=== PATIENT | female | born 1980 | race Two or more races ===

== ENCOUNTER 2023-02-17 00:05 | Day surgery (SDC) | payer BC, SELFPAY ==
--- NOTE | 2023-02-06 15:23 | PC.NURSE ---
Report to the Outpatient Waiting Room, entrance under the green pavilion located off [facility], at time _0715_ on date _02/17/23__. Planned Procedure Time: _0915_. Time changes happen often and if your time is changed the preop area will call you the afternoon before. - You and your visitor will be asked to self-screen and do not enter if you have any COVID symptoms. - A mask is optional within the hospital at this time. Patients may have clear liquids (water, carbonated beverages, clear teas, apple juice) until 3 hours prior to surgery with a maximum of 20 ounces. - No food from midnight until time of surgery - Infants may have breast milk until 4 hours before surgery, infant formula 6 hours prior to surgery. - Children will be allowed to drink immediately following surgery. If applicable, please bring a bottle or sippy cup to assist with drinking. Juice, water, soda, and popsicles are readily available. For infants on formula, please bring formula the day of surgery. Pacifiers are allowed. Take the following medications with a SIP of water the morning of surgery: _Pt on no home meds___ DO NOT STOP ANY OF YOUR OTHER PRESCRIPTION MEDICATIONS PRIOR TO SURGERY ?EXCEPT THE FOLLOWING Medications to discontinue per physician Date to take last dose Please no make-up, nail syriac, hairspray, perfume, deodorant, or body powder the day of surgery. No jewelry (including any body piercings) or valuables the day of surgery, leave them at home. Please take a shower or bath the night before, or the morning of, surgery with an antibacterial soap. Wear comfortable, loose fitting clothing. Children are encouraged to wear pajamas. - Jewelry must be removed prior to entering the operating room. Rings and piercings that are not removed may be cut off. - The hospital will not accept responsibility for valuables. - Please leave all valuables, including medications, at home the day of surgery. If you are going home after surgery, a licensed auto transport driver must drive you home. - NO public transportation without another adult if you receive anesthesia. - We recommend that an adult stay with you for 24 hours following discharge. - We also recommend that you do not drive, make important decision, drink alcoholic beverages, or take any drugs that were not prescribed by your health care provider for at least 24 hours after your discharge time. For Pediatric surgeries, we recommend two adults accompany the child home. Follow any additional instructions given to you from your surgeon. If you or anyone in your household have experienced Covid symptoms in the past week, please notify your surgeon or the nurse liaison at the phone number below for possible testing. Telephone instructions given to _Patient__and asked if any additional questions and then verbalized understanding. Patient advised to call surgeon office or pre surgery nurse liaison [phone] if any additional questions.
[2023-02-06 15:31] VITALS: BMI 29.9
[2023-02-17 07:22] VITALS: BP 115/89; PULSE 66; RESP 16; TEMP 36.4; O2SAT 100
--- NOTE | 2023-02-17 07:29 | WPDHPUPDATE1 ---
History and Physical Update Update Date/Time: 02/17/23 07:29 History and Physical has been reviewed, including an updated exam of the patient. There are NO changes in the patient's condition. Risks, benefits, and alternatives have been discussed and questions answered. Patient agrees to proceed with procedure.
--- NOTE | 2023-02-17 07:29 | PM.HPGS ---
History of Present Illness History of Present Illness Consent: Risks, benefits, and alternatives have been discussed and questions answered. Patient agrees to proceed with procedure. Chief complaint: menorrhagia Narrative: Nadia Rolon is a 43 year old female with new onset menorrhagia. Patient has a history of menorrhagia treated with endometrial ablation in 2017 and 2018 in [place]. The patient is new to the area and states her cycles are for 4 days with passing clots and a pad change approximately every 2hours. Was recommended to proceed with D&C hysteroscopy. Risks of infection, bleeding, perforation, and inability to enter the cavity were reviewed. Patient voices understanding and agrees to proceed. Patient was given Cytotec 1000mcg nightly for 7 days prior to the surgery. Review of Systems Review of Systems: not repeated day of surgery; patient states no changes in status [facility] Past Medical History Medical History (Updated 02/17/23 @ 07:36 by Bekah Bell MD) Depression with anxiety Sleep apnea Surgical History Surgical History (Updated 02/17/23 @ 07:35 by Bekah Bell MD) H/O adenoidectomy History of bilateral tubal ligation History of x2 History of endometrial ablation 2018 and possibly 2017 History of surgery on wrist Social History Social History Smoking status: Never smoker Alcohol intake: current Alcohol use details: Maybe a drink a month Substance use: never Substance use type: does not use Living arrangements: with family Spiritual care concerns: No Meds Home Medications and Allergies Allergies Allergy/AdvReac Type Severity Reaction Status Date / Time hydrocodone Allergy Mild Nausea Verified 02/17/23 07:36 Penicillins Allergy Mild Nausea Verified 02/17/23 07:36 Exam Const: General: healthy appearing and alert Orientation/consciousness: patient oriented x3 Resp: Effort & Inspection: normal respiratory effort GI: GI Palp: Yes Soft to palpation and No Tenderness to palpation present (GI) : External Female Exam: normal external appearance Speculum Exam - Vagina: normal appearance of the vagina and normal vaginal discharge Speculum Exam - Cervix: normal appearance of the cervix Bimanual exam- vagina & uterus: consistency normal and enlarged ( approximately 16 weeks) Bimanual Exam- Adnexa, other: normal adnexae and No adnexal tenderness Neuro: General: patient oriented x3 Assessment and Plan Assessment and plan (1) Menorrhagia: Code(s): N92.0 - Excessive and frequent menstruation with regular cycle Status: Acute Assessment and Plan: plan to proceed with D&C hysteroscopy
[2023-02-17] MEDS: ACETAMINOPHEN 500 MG TABLET 1000 MG PO (07:43)
[2023-02-17] MEDS: LACTATED RINGERS 1,000 ML 30 ML IV CONT (08:18)
--- NOTE | 2023-02-17 08:36 | P.PNAN_ITS ---
Anes - Initial Pre Proc Eval Procedure: Operation Date: 02/17/23 09:15 Proposed Procedures p Hysteroscopy Dilation and Curettage - Bekah Bell MD Date/Time: 02/17/23 08:36 Surgeon: Bekah Bell MD Pre Op Diagnosis: menorrhagia Patient Data Age: 43 Gender: F Height: 1.65 m Weight: 86.1 kg Last Vital Signs Temp 36.4 C 02/17/23 07:22 Pulse 66 02/17/23 07:22 Resp 16 02/17/23 07:22 BP 115/89 02/17/23 07:22 Pulse Ox 100 02/17/23 07:22 O2 Del Method Room Air 02/17/23 07:22 Allergies Allergy/AdvReac Type Severity Reaction Status Date / Time hydrocodone Allergy Mild Nausea Verified 02/17/23 07:36 Penicillins Allergy Mild Nausea Verified 02/17/23 07:36 Home Medications Medication Instructions Recorded Confirmed Type No Home Medications 02/17/23 02/17/23 History Patient hx anesthesia problems: none Family hx anesthesia problems: none Results Review: All pre-operative results and documents have been reviewed as part of the pre- operative evaluation. [facility] Past Medical History Medical History Depression with anxiety Sleep apnea Surgical History Surgical History H/O adenoidectomy History of bilateral tubal ligation History of x2 History of endometrial ablation 2018 and possibly 2017 History of surgery on wrist Social History Social History Smoking status: Never smoker Alcohol intake: current Alcohol use details: Maybe a drink a month Substance use: never Substance use type: does not use Living arrangements: with family Spiritual care concerns: No Anes - Eval Final PreProcedure Day of Procedure 02/17/23 08:36 Patient weight: obese Heart: regular rate and rhythm Lungs: clear to auscultation Airway: Mallampati scale class II Neurological: alert and oriented Last oral intake: >/= 8 hours ASA classification: III Emergent: no Anesthetic plan: proceed Anesthesia type and monitoring: general GIVS and standard monitoring Results Review: All pre-operative results and documents have been reviewed as part of the pre- operative evaluation. Informed Consent: The patient's anesthetic plan and its attendant risks and benefits were discussed with the patient/family/POA. Questions were solicited and answers provided to the satisfaction of the patient/family/POA.
[2023-02-17] MEDS: LIDOCAINE HCL 1% LOCAL INJ 10 ML VIAL INFILTRATE (09:35)
--- NOTE | 2023-02-17 09:53 | P.OP_ITS ---
Procedure Note - Detailed Date of Procedure 02/17/23 Pre-op Diagnosis menorrhagia Post-op Diagnosis Same Procedure Performed D&C hysteroscopy with resection of polyps Surgeon Bekah Bell MD Anesthesia MAC and Local Findings uterus sounds to 9cm; 2 large polyps noted; thickened endometrium anteriorly Description of Procedure The patient was taken to the operating room and placed under anesthesia in the dorsal lithotomy position. She was prepped and draped in the usual sterile fashion. [place] speculum was placed in the vagina and the cervix grasped on the anterior lip with a tenaculum. The cervix is injected in each quadrant with 1% lidocaine. The uterus is sounded to 9cm. Hysteroscope was placed with the above-stated findings. The Aveeta resection device is placed through the hysteroscope and under direct visualization the polyps and thickened lining are removed. The hysteroscope was then removed. A sharp curette is used to curette the endometrium until a good uterine cry was noted in all areas. All instruments were then removed. The patient was awakened from anesthesia and taken to recovery in stable condition. Sponge, needle, and instrument counts are correct per the OR staff. Estimated Blood Loss 5 Drains No Packing No Pathology Yes ( Endometrial curettings and shavings) Complications No immediate complications Condition Stable Disposition PACU
[2023-02-17 09:58] VITALS: BP 98/65; PULSE 68; RESP 16; O2SAT 99
[2023-02-17 10:13] VITALS: BP 115/75; PULSE 63; RESP 15
[2023-02-17 10:28] VITALS: BP 117/70; PULSE 55; RESP 16
[2023-02-17 10:43] VITALS: BP 118/72; PULSE 62; RESP 15
== END 2023-02-17 10:47 | disposition home or self-care (01) ==
PROVIDERS: PCP Family Medicine; Visit Provider Obstetrics & Gynecology Gynecology
PROC: 0U5B8ZZ Destruction of Endometrium, Via Natural or Artificial Opening Endoscopic (ICD-10-PCS; CPT 58563; principal; 2023-02-17 09:15)
DX: N92.0 Excessive and frequent menstruation with regular cycle (principal); N84.0 Polyp of corpus uteri
CPT/HCPCS: 58558; 88305; A9270; J2250; J2704; J3010; J7120

== ENCOUNTER 2023-06-17 12:24 | Outpatient (CLI) | payer BC, SELFPAY ==
[2023-06-17 12:47] LABS: Hematocrit 41.4 % (37.0-47.0); Hemoglobin 13.5 g/dL (12.0-15.0)
== END 2023-06-17 12:25 | disposition home or self-care (01) ==
LOC: ANHSURGERY 12:29
PROVIDERS: PCP Family Medicine; Visit Provider Obstetrics & Gynecology Gynecology
DX: Z01.812 Encounter for preprocedural laboratory examination (principal); N92.0 Excessive and frequent menstruation with regular cycle
CPT/HCPCS: 36415; 85014; 85018; 86850; 86900; 86901

== ENCOUNTER 2023-06-23 12:28 | Inpatient (IN) | payer BC, SELFPAY ==
[2023-06-13 12:41] VITALS: BMI 29.9
--- NOTE | 2023-06-13 12:46 | PC.NURSE ---
Report to the Outpatient Waiting Room, entrance under the green pavilion located off [facility], at time 6:15 on date 06/23/23. Planned Procedure Time: 8:15. Time changes happen often and if your time is changed the preop area will call you the afternoon before. - You and your visitor will be asked to self-screen and do not enter if you have any COVID symptoms. - A mask is optional within the hospital at this time. Patients may have clear liquids (water, carbonated beverages, clear teas, apple juice) until 3 hours prior to surgery (5:15) with a maximum of 20 ounces. - No food from midnight until time of surgery Take the following medications with a SIP of water the morning of surgery: N/A DO NOT STOP ANY OF YOUR OTHER PRESCRIPTION MEDICATIONS PRIOR TO SURGERY ?EXCEPT THE FOLLOWING Medications to discontinue per physician: N/A Date to take last dose: N/A Please no make-up, nail icelandic, hairspray, perfume, deodorant, or body powder the day of surgery. No jewelry (including any body piercings) or valuables the day of surgery, leave them at home. Please take a shower or bath the night before, or the morning of, surgery with an antibacterial soap. Wear comfortable, loose fitting clothing. - Jewelry must be removed prior to entering the operating room. Rings and piercings that are not removed may be cut off. - The hospital will not accept responsibility for valuables. - Please leave all valuables, including medications, at home the day of surgery. If you are going home after surgery, a licensed national flatbed truck driver must drive you home. - NO public transportation without another adult if you receive anesthesia. - We recommend that an adult stay with you for 24 hours following discharge. - We also recommend that you do not drive, make important decision, drink alcoholic beverages, or take any drugs that were not prescribed by your health care provider for at least 24 hours after your discharge time. Follow any additional instructions given to you from your surgeon. If you or anyone in your household have experienced Covid symptoms in the past week, please notify your surgeon or the nurse liaison at the phone number below for possible testing. Telephone instructions given to PT - JANES VILLANUEVA and asked if any additional questions and then verbalized understanding. Patient advised to call surgeon office or pre surgery nurse liaison [phone] if any additional questions.
[2023-06-23] VITALS (20 sets, daily range): BP systolic 112–137; BP diastolic 56–83; PULSE 54–70; RESP 12–18; TEMP 36.2–36.9; O2SAT 92–100
[2023-06-23] MEDS: ACETAMINOPHEN 500 MG TABLET 1000 MG PO (06:59)
--- NOTE | 2023-06-23 07:15 | P.PNAN_ITS ---
Anes - Initial Pre Proc Eval Procedure: Operation Date: 06/23/23 08:15 Proposed Procedures p Total Abdominal Hysterectomy with Bilateral Salpingectomy - Bekah Bell MD Date/Time: 06/23/23 07:15 Surgeon: Bekah Bell MD Pre Op Diagnosis: Menorrhagia Patient Data Age: 43 Gender: F Height: 1.65 m Weight: 86.1 kg Last Vital Signs Temp 36.2 C L 06/23/23 06:12 Pulse 65 06/23/23 06:12 Resp 16 06/23/23 06:12 BP 130/82 06/23/23 06:12 Pulse Ox 100 06/23/23 06:12 O2 Del Method Room Air 06/23/23 06:12 Allergies Allergy/AdvReac Type Severity Reaction Status Date / Time hydrocodone Allergy Mild Nausea Verified 06/23/23 06:45 Penicillins Allergy Mild Nausea Verified 06/23/23 06:45 Home Medications Medication Instructions Recorded Confirmed Type No Home Medications 02/17/23 06/23/23 History Patient hx anesthesia problems: none Family hx anesthesia problems: none Results Review: All pre-operative results and documents have been reviewed as part of the pre- operative evaluation. [facility] Past Medical History Medical History Depression with anxiety Sleep apnea Surgical History Surgical History H/O adenoidectomy History of bilateral tubal ligation History of x2 History of endometrial ablation 2018 and possibly 2017 History of surgery on wrist Social History Social History Smoking status: Never smoker Alcohol intake: never Alcohol use details: Maybe a drink a month Substance use: current Substance use type: marijuana Living arrangements: with family Spiritual care concerns: No Anes - Eval Final PreProcedure Day of Procedure 06/23/23 07:15 Patient weight: obese Heart: regular rate and rhythm Lungs: clear to auscultation Airway: Mallampati scale class II Neurological: alert and oriented Last oral intake: >/= 8 hours ASA classification: III Emergent: no Anesthetic plan: proceed Anesthesia type and monitoring: general ETT and standard monitoring Results Review: All pre-operative results and documents have been reviewed as part of the pre- operative evaluation. Informed Consent: The patient's anesthetic plan and its attendant risks and benefits were discussed with the patient/family/POA. Questions were solicited and answers provided to the satisfaction of the patient/family/POA.
--- NOTE | 2023-06-23 07:22 | WPDHPUPDATE1 ---
History and Physical Update Update Date/Time: 06/23/23 07:22 History and Physical has been reviewed, including an updated exam of the patient. There are NO changes in the patient's condition. Risks, benefits, and alternatives have been discussed and questions answered. Patient agrees to proceed with procedure.
--- NOTE | 2023-06-23 07:22 | PM.IMHP ---
H&P: HPI History of Present Illness Date/Time: 06/23/23 07:22 Chief Complaint: Menorrhagia Narrative: The patient is a 43-year-old with longstanding menorrhagia. She presented as a new patient to me in December of 2022 and is status post 2 ablations 1 in 2017 and 1 in 2018. She reports continued heavy cycles with clotting. She underwent hysteroscopy with findings of 2 large polyps. Cycles were observed and did not improved. She has elected to proceed with hysterectomy. Risks of infection, bleeding, injury to internal organs (especially bowel, bladder, ureters, ovaries), DVT and general anesthesia are reviewed. Uterus palpates as 16 week size however ultrasound shows it to be 10cm. No appreciable fibroids are noted on ultrasound. Patient has had 2 prior sections therefore we plan to proceed with total abdominal hysterectomy bilateral salpingectomy. Patient voices understanding and agrees to proceed. Review of Systems Review of Systems: not repeated day of surgery; patient states no changes in status [facility] Past Medical History Medical History Depression with anxiety Sleep apnea Surgical History Surgical History (Updated 06/23/23 @ 07:26 by Bekah Bell MD) H/O adenoidectomy History of bilateral tubal ligation History of x2 History of endometrial ablation 2017 and possibly 2017 History of hysteroscopy 2022 showing polyps History of surgery on wrist Social History Social History Smoking status: Never smoker Alcohol intake: never Alcohol use details: Maybe a drink a month Substance use: current Substance use type: marijuana Living arrangements: with family Spiritual care concerns: No Meds Home Medications and Allergies Home Medications Medication Instructions Recorded Confirmed Type No Home Medications 02/17/23 06/23/23 History Allergies Allergy/AdvReac Type Severity Reaction Status Date / Time hydrocodone Allergy Mild Nausea Verified 06/23/23 06:45 Penicillins Allergy Mild Nausea Verified 06/23/23 06:45 Vital Signs Vital Signs - 24 hr 06/23/23 06:12 Temperature 97.2 F L Pulse Rate 65 Respiratory Rate 16 Blood Pressure 130/82 Pulse Oximetry 100 Oxygen Delivery Room Air Exam Const: General: healthy appearing and alert Orientation/consciousness: patient oriented x3 Resp: Effort & Inspection: normal respiratory effort GI: GI Palp: Yes Soft to palpation, No Tenderness to palpation present (GI) and No Palpable mass present : External Female Exam: normal external appearance Speculum Exam - Vagina: normal appearance of the vagina and normal vaginal discharge Speculum Exam - Cervix: normal appearance of the cervix Bimanual exam- vagina & uterus: consistency normal and enlarged (And firm) Bimanual Exam- Adnexa, other: normal adnexae and No adnexal tenderness Neuro: General: patient oriented x3 Assessment and Plan Assessment and plan (1) Menorrhagia: Code(s): N92.0 - Excessive and frequent menstruation with regular cycle Status: Acute Assessment and Plan: Plan to proceed with total abdominal hysterectomy and bilateral salpingectomy
[2023-06-23] MEDS: LACTATED RINGERS 1,000 ML 30 ML IV CONT ×3 (07:48→11:31)
[2023-06-23] MEDS: KETOROLAC 15 MG/ML VIAL (*BKC) IV PUSH (07:51)
[2023-06-23] MEDS: ceFAZolin 2 GM/D5W 50 ML 2 GM/50 ML BAG IVPB (08:36)
[2023-06-23] MEDS: METHYLENE BLUE 0.5% INJ 10 ML AMPULE 20 ML IRRIGATION (10:07)
--- NOTE | 2023-06-23 10:38 | W.PM.PROC2 ---
Procedure Note - Detailed Date of Procedure 06/23/23 Pre-op Diagnosis Intraoperative bladder injury Post-op Diagnosis Same Procedure Performed Repair of bladder laceration/cystorrhaphy Surgeon Janak Gore MD Anesthesia General Indications I was asked to come into the room to evaluate a bladder injury to hysterectomy. A animal nutritionist noted significant adhesions of the bladder and uterus to the anterior pelvic wall. Findings Small bladder laceration. Mostly repaired by the animal nutritionist. Completion of repair by myself in conjunction with a animal nutritionist Description of Procedure I into the room upon the request of her animal nutritionist. She was already under general anesthesia in the abdomen was open. I examined the bladder. The space of Retzius was already opened to free the bladder off the pubic bones. A partial repair of bladder injury was already conducted. A White catheter is in place. The bladder was filled to 150 cc saline. An area of leakage was noted at the left dome of the bladder. It was isolated. There was mostly mucosa in this area with very little overlying detrusor muscle and adventitia. I was able to repair this bladder laceration with 2 separate [id number] 2-0Vicryl sutures. The bladder was then filled to 180 cc of saline. No further leakage was noted from the bladder. At this point the bladder was very full. The rest of the repair was intact as well. She was then turned over to her animal nutritionist for the remainder of the surgery. White catheter be left indwelling. She will need to be discharged home with White catheter with a cystogram in 10 days Estimated Blood Loss 5 Condition Stable
--- NOTE | 2023-06-23 10:55 | W.PM.PROC2 ---
Procedure Note - Detailed Date of Procedure 06/23/23 Pre-op Diagnosis Menorrhagia Post-op Diagnosis Same Procedure Performed Total abdominal hysterectomy with bilateral salpingectomy repair of cystotomy Surgeon Bekah Bell MD intraoperative consult with Dr. Gore Anesthesia General Findings The uterus and bladder are adherent to the anterior abdominal wall in approximately a 5x3cm sq. She has normal-appearing ovaries, uterus, and tubes with evidence of prior ligation. 3 cm injury to the bladder at the dome in midline. Description of Procedure The patient is taken to the operating room and placed under anesthesia in the dorsal supine position. She was prepped and draped in the usual sterile fashion. A Pfannenstiel skin incision was made with a scalpel and carried down to the underlying layer of fascia. The fascia was very dense and scarred. The fascia was nicked in the midline and extended laterally with Marina scissors. Ochsner was used to tent the fascia which was then dissected off using sharp dissection due to adhesions. The rectus muscles are in the midline and the peritoneum entered with a Peon high in the incision. The incision was extended minimally with blunt traction due to underlying adhesions. Palpating the undersurface the abdominal wall leads to a very densely adherent sq of tissue from the uterus and bladder to the anterior abdominal wall. The bowel was packed away using moist laparotomy sponges and Siletz retractor placed. The uterus was grasped on the cornua with large Peons. At this point the nurse music composition teacher is instructed to closely observe the White catheter for blood. The uterus and abdomen are dissected off the anterior abdominal wall using sharp dissection with Metzenbaum scissors. A pink tinge was noted to the urine at this point. Once the uterus was dissected off the anterior abdominal wall the bladder was noted to be very adherent to the mid uterus. This is dissected off using sharp dissection with Metzenbaum scissors. The urine continued to have increasing levels of red consistent with a bladder injury. The left utero-ovarian ligament is isolated and a window created in the posterior leaf of the broad ligament. The tube distal portion was grasped with a Denver and the pedicle doubly clamped with minimally curved Z clamps. Pedicle was then transected and suture ligated with 0 Vicryl. The round ligament on the left is completely obliterated and scarred to the pelvic sidewall. This is dissected off using sharp and blunt dissection. Round ligament is then doubly ligated with 0 Vicryl, transected, and the anterior leaf of the broad ligament incised meeting approximately the midline. The right round ligament was doubly ligated with 0 Vicryl, transected, and the anterior leaf of the broad ligament incised meeting in the midline. The bladder was dissected off the cervix with a sponge stick. The utero ovarian ligament on the right is isolated and a window created in the posterior leaf of the broad ligament. The distal tube is grasped with a Krysten and noted to be very distal from the utero-ovarian ligament. The tube was clamped at its connection with the ovary on a very scarred mesiosalpinx with Z clamp. The tube was excised and the pedicle tied off using 0 Vicryl. The utero-ovarian ligament was doubly clamped, transected, and suture ligated with 0 Vicryl. The uterine vessels are doubly clamped, transected, suture ligated with 0 Vicryl. The cardinal and uterosacral ligaments were serially clamped, transected, and suture ligated with 0 Vicryl. The uterosacral ligaments were tagged for future use. A scalpel was used to enter the anterior vaginal cuff in the midline. The Allis clamp was used to grasp the vaginal cuff. The specimen is amputated using Miracle scissors. The Allis clamps were used to grasp the vaginal cuff as the specimen was amputated. The vaginal cuff was then closed usi
--- NOTE | 2023-06-23 11:13 | PM.DS ---
DS: Admitting Diagnosis Discharge Date 06/25/23 Admitting Diagnosis menorrhagia DS: Discharge Diagnosis Discharge Diagnosis (1) Status post total abdominal hysterectomy: Code(s): Z90.710 - Acquired absence of both cervix and uterus Status: Acute DS: Summary Hospital Course Reason for hospitalization: postoperative care Hospital Course: At the time of discharge, the patient is tolerating regular diet and ambulating. She has her White catheter in place and will be discharged with the catheter. Status at Discharge Functional status at discharge: independent ambulation Overall status at discharge: patient is progressing back to baseline Time Spent with Patient Time attestation: Total time spent providing and/or coordinating discharge services: DS: Data Data Completed and Pending Pending studies at discharge: Pending at discharge 06/23/23 10:45 Surgical [PTH] Routine Discharge Plan Discharge Attending physician on discharge: Bekah Bell Discharging Clinician: Bekah Bell Anticipated Discharge Date/Time: 06/25/23 07:53 Patient Disposition: Home, Self-Care Activity: may drive after 2 weeks and pelvic rest Diet: regular Wound Care Instructions: incision open to air Stand Alone Forms: General Discharge Instructions Follow-up/Referrals: Bekah Bell MD [Physician] - 1 Week (and 6 week) Discharge Medications: New ibuprofen 600 mg Tablet 600 mg PO Q6H PRN (Reason: Cramping) Qty: 60 0RF No Action No Home Medications Date of admission: 06/23/23 12:28 Primary Care Provider: Chris,Hemalatha Admitting Provider: Bekah Bell Attending physician on admission: Bekah Bell Condition: Stable Care Plan Goals: cytogram 07/04
[2023-06-23] MEDS: fentaNYL CITRATE INJ (*CRX) 100 MCG/2 ML VIAL 25 MCG IV PUSH ×2 (11:53→12:08)
[2023-06-23] MEDS: KETOROLAC 30 MG/ML VIAL (*BKC) IV PUSH (13:30)
[2023-06-23] MEDS: DEXTROSE 5%/LACTATED RINGERS 1,000 ML 125 ML IV CONT ×2 (13:37→21:19)
[2023-06-23] MEDS: ONDANSETRON INJ 4 MG/2 ML VIAL IV PUSH ×2 (13:38→19:05)
[2023-06-23] MEDS: FENTANYL 600MCG/NS30MLPCA(*CRX 600 MCG/30 ML PCA.VIAL IV CONT (15:21)
[2023-06-23] MEDS: diphenhydrAMINE HCl INJ 50 MG/ML VIAL 25 MG IV PUSH (19:05)
[2023-06-24] VITALS (7 sets, daily range): BP systolic 108–130; BP diastolic 65–74; PULSE 69–84; RESP 16–18; TEMP 36.7–37.3; O2SAT 98–99
[2023-06-24] MEDS: ONDANSETRON INJ 4 MG/2 ML VIAL IV PUSH (04:11)
[2023-06-24 04:39] LABS: Basophils Percent Auto 0.2 % (0.2-1.2); Hematocrit 30.6 % (37.0-47.0); Hemoglobin 9.7 g/dL (12.0-15.0); Immature Granulocyte Absolute 0.05 K/mm3 (0.00-0.031); Immature Granulocyte Percent A 0.4 % (0-0.5); Lymphocytes Absolute Auto 1.55 K/mm3 (0.9-3.2); Lymphocytes Percent Auto 13.2 % (18.3-44.2); Mean Corpuscular HGB Conc 31.7 g/dl (32-36); Mean Corpuscular Hemoglobin 29.2 pg (26-34); Mean Corpuscular Volume 92.2 fl (80-100); Mean Platelet Volume 9.9 fl (7.4-10.4); Monocytes Absolute Auto 0.9 K/mm3 (0.1-0.6); Monocytes Percent Auto 7.6 % (2.6-8.5); Neutrophils Absolute Auto 9.3 K/mm3 (1.3-6.7); Neutrophils Percent Auto 78.6 % (45.5-73.1); Platelet Count Result 268 k/mm3 (150-375); Red Blood Count 3.32 M/mm3 (4.2-5.4); Red Cell Distribution Width 12.8 % (11.5-14.5); White Blood Count 11.8 K/mm3 (4.5-10.0)
[2023-06-24] MEDS: DEXTROSE 5%/LACTATED RINGERS 1,000 ML 125 ML IV CONT (05:14)
--- NOTE | 2023-06-24 07:55 | PM.GYNPNOP ---
BEADING SAWYER - A/P Postoperative Procedures: Procedures Operation Date: 06/23/23 08:15 Actual Procedure Side Surgeon p Total Abdominal Hysterectomy with Bilateral Salpingectomy Bilateral Bekah Bell MD s Repair of Bladder Laceration Not Applicable Janak Gore MD Postoperative day: 1 Postoperative status: doing well and other (reviewed op findings and bladder injury and repair) Postoperative plan: routine post-op care (except leaving haskins in for 10 days) Time Spent With Patient Time: Total time spent is greater than 50% in coordination of care (as documented) at patient's floor/unit and/or counseling patient: Time with patient: less than 15 minutes BEADING SAWYER- PN:Subj Post-Op Subjective Date/time seen: 06/24/23 07:55 Subjective: patient reports feeling better, patient has no complaints and pain is well controlled Exam Narrative: inc c/d/i Const: General: comfortable BEADING SAWYER - PN: Obj Data Vital Signs Vital Signs: Vital Signs - 24 hr 06/23/23 10:59 06/23/23 11:15 06/23/23 11:30 Temperature 98.2 F Pulse Rate 70 56 L 55 L Respiratory Rate 12 16 12 Blood Pressure 126/56 L 112/70 124/72 Pulse Oximetry 100 100 98 Oxygen Delivery Simple Face Mask Simple Face Mask Room Air Oxygen Flow Rate 10 10 06/23/23 11:45 06/23/23 12:00 06/23/23 12:15 Temperature Pulse Rate 54 L 54 L 54 L Respiratory Rate 12 16 16 Blood Pressure 113/70 125/65 121/71 Pulse Oximetry 97 98 92 Oxygen Delivery Room Air Room Air Room Air Oxygen Flow Rate 06/23/23 12:27 06/23/23 12:50 06/23/23 15:21 Temperature 97.4 F L Pulse Rate 59 L 56 L Respiratory Rate 18 16 16 Blood Pressure 120/70 112/64 Pulse Oximetry 99 100 97 Oxygen Delivery Room Air Oxygen Flow Rate 06/23/23 17:36 06/23/23 12:45 06/23/23 17:51 Temperature 97.5 F L Pulse Rate 68 68 68 Respiratory Rate 16 16 16 Blood Pressure 129/79 Pulse Oximetry 98 98 98 Oxygen Delivery Room Air Room Air Oxygen Flow Rate 06/23/23 16:20 06/23/23 17:20 06/23/23 18:20 Temperature Pulse Rate Respiratory Rate 16 14 16 Blood Pressure Pulse Oximetry 97 95 99 Oxygen Delivery Oxygen Flow Rate 06/23/23 18:45 06/23/23 18:45 06/23/23 23:24 Temperature 98.4 F Pulse Rate 67 Respiratory Rate 18 Blood Pressure 137/83 Pulse Oximetry 98 98 Oxygen Delivery Room Air CPAP Oxygen Flow Rate 06/24/23 00:00 06/24/23 00:00 06/24/23 04:13 Temperature 98.3 F 98.1 F Pulse Rate 69 84 Respiratory Rate 18 16 Blood Pressure 127/73 126/74 Pulse Oximetry 98 98 Oxygen Delivery CPAP Oxygen Flow Rate 06/24/23 04:13 06/23/23 20:15 06/23/23 22:30 Temperature Pulse Rate Respiratory Rate 18 14 Blood Pressure Pulse Oximetry 98 100 Oxygen Delivery CPAP Oxygen Flow Rate 06/24/23 00:42 06/24/23 02:50 06/24/23 05:16 Temperature Pulse Rate Respiratory Rate 18 16 16 Blood Pressure Pulse Oximetry 98 98 98 Oxygen Delivery Oxygen Flow Rate Intake/Output Intake/Output: Intake & Output 06/21/23 06/22/23 06/23/23 06/24/23 23:59 23:59 23:59 23:59 Intake Total 2403 1207.5 Output Total 830 1175 Balance 1573 32.5 Meds/Results Medications: Active Medications Generic Name Dose Route Start Last Admin Trade Name Freq PRN Reason Stop Dose Admin Diphenhydramine HCl 25 mg 06/23/23 18:53 06/23/23 19:05 Diphenhydramine Hcl Inj 50 Mg/Ml Vial IV PUSH 25 mg Q4H PRN Administration Vomiting Dextrose/Lactated Ringer's 1,000 mls @ 125 mls/hr 06/23/23 12:28 06/24/23 05:14 Dextrose 5%/Lactated Ringers IV CONT 125 mls/hr .Q8H KARTHIK Administration Fentanyl Citrate 600 mcg in 30 mls @ 0.5 mls/hr 06/23/23 12:28 06/24/23 05:16 Fentanyl 600 Mcg/Ns 30 Ml Technology Adoption Manager IV CONT 10 mcg/hr PRN PRN 0.5 mls/hr COLLET GLUER Management Titration Protocol 10 MCG/HR Ibuprofen 600 mg 06/23/23 12:28 Ibuprofen 600 Mg Tablet PO Q6H PRN Cramping Keto
--- NOTE | 2023-06-24 08:00 | PC.NURSE ---
PT introductions made and plan of care discussed per post op industrial nurse surgery, pain management, daily care activities. PT sole recipient of such instructions and no barriers to learning identified at this time. PT received such instructions per one to one discussion and demonstrations this shift. PT verbalized understanding of such care.
[2023-06-24] MEDS: KETOROLAC 30 MG/ML VIAL (*BKC) IV PUSH (08:29)
--- NOTE | 2023-06-24 08:45 | P.PNAN_ITS ---
Anes - Prog Note Post-Op Date/Time: 06/24/23 08:45 Cardiovascular status: normal Respiratory status: normal Airway patency: baseline Mental status: baseline Post-Op hydration status: normal Vital Signs: Last Vital Signs Temp 36.7 C 06/24/23 04:13 Pulse 84 06/24/23 04:13 Resp 16 06/24/23 05:16 BP 126/74 06/24/23 04:13 Pulse Ox 98 06/24/23 05:16 O2 Del Method CPAP 06/24/23 04:13 O2 Flow Rate 10 06/23/23 11:15 Pain Score (VAS): 11/08 I/O: Intake & Output 06/23/23 06/24/23 06/24/23 23:59 07:59 15:59 Intake Total 1003 1207.5 7.5 Output Total 800 1175 Balance 203 32.5 7.5 Laboratory Tests 06/24/23 04:06 06/24/23 04:06 WBC 11.8 H RBC 3.32 L Hgb 9.7 L D Hct 30.6 L MCV 92.2 MCH 29.2 MCHC 31.7 L RDW 12.8 Plt Count 268 MPV 9.9 Immature Gran % (Auto) 0.4 Neut % (Auto) 78.6 H Lymph % (Auto) 13.2 L [place] % (Auto) 7.6 Eos % (Auto) 0.0 Baso % (Auto) 0.2 Lymph # (Auto) 1.55 [place] # (Auto) 0.9 H Eos # (Auto) 0.0 Baso # (Auto) 0.0 Abs Immat Gran (auto) 0.05 H Absolute Neuts (auto) 9.3 H Absolute Nucleated RBC 0.0 Nucleated RBC % 0.0 Post-procedural complaints: none Patient Feedback: Patient satisfied with anesthetic care.
[2023-06-24] MEDS: oxyCODONE/ACETAMINOPHEN (*CRX) 5-325 MG TABLET 1 TABLET PO (12:35)
[2023-06-24] MEDS: IBUPROFEN 600 MG TABLET PO (17:21)
[2023-06-25] MEDS: IBUPROFEN 600 MG TABLET PO (05:25)
[2023-06-25 07:17] VITALS: BP 129/81; PULSE 71; RESP 16; TEMP 36.8; O2SAT 99
--- NOTE | 2023-06-25 07:23 | P.PNOB_ITS ---
AUTOMATION ENGINEERING TECHNICIAN - A/P Postoperative Procedures: Procedures Operation Date: 06/23/23 08:15 Actual Procedure Side Surgeon p Total Abdominal Hysterectomy with Bilateral Salpingectomy Bilateral Bekah Bell MD s Repair of Bladder Laceration Not Applicable Janak Gore MD Postoperative day: 2 Postoperative status: doing well Postoperative plan: discharge and other (cystogram set for 07/04) Time Spent With Patient Time: Total time spent is greater than 50% in coordination of care (as documented) at patient's floor/unit and/or counseling patient: Time with patient: less than 15 minutes AUTOMATION ENGINEERING TECHNICIAN- PN:Subj Post-Op Subjective Date/time seen: 06/25/23 07:23 Subjective: patient reports feeling better, patient has no complaints and pain is well controlled (with just Motrin) Exam Narrative: inc c/d/i AUTOMATION ENGINEERING TECHNICIAN - PN: Obj Data Vital Signs Vital Signs: Vital Signs - 24 hr 06/24/23 08:30 06/24/23 19:15 06/25/23 07:17 Temperature 98.4 F 99.1 F Pulse Rate 75 77 Respiratory Rate 16 18 Blood Pressure 130/65 108/72 Pulse Oximetry 99 99 Oxygen Delivery CPAP Intake/Output Intake/Output: Intake & Output 06/22/23 06/23/23 06/24/23 06/25/23 23:59 23:59 23:59 23:59 Intake Total 2403 3115.0 400 Output Total 830 3500 650 Balance 1573 -385.0 -250 Meds/Results Medications: Active Medications Generic Name Dose Route Start Last Admin Trade Name Freq PRN Reason Stop Dose Admin Diphenhydramine HCl 25 mg 06/23/23 18:53 06/23/23 19:05 Diphenhydramine Hcl Inj 50 Mg/Ml Vial IV PUSH 25 mg Q4H PRN Administration Vomiting Dextrose/Lactated Ringer's 1,000 mls @ 125 mls/hr 06/23/23 12:28 06/25/23 05:27 Dextrose 5%/Lactated Ringers IV CONT Not Given .Q8H KARTHIK Fentanyl Citrate 600 mcg in 30 mls @ 0.5 mls/hr 06/23/23 12:28 06/24/23 08:33 Fentanyl 600 Mcg/Ns 30 Ml Garden Consultant IV CONT Infused PRN PRN Titration BRICK EXTRUDER OPERATOR Management Protocol 10 MCG/HR Ibuprofen 600 mg 06/23/23 12:28 06/25/23 05:25 Ibuprofen 600 Mg Tablet PO 600 mg Q6H PRN Administration Cramping Ketorolac Tromethamine 30 mg 06/23/23 12:28 06/24/23 08:29 Ketorolac 30 Mg/Ml Vial (*Bkc) IV PUSH 06/28/23 12:27 30 mg Q6H PRN Administration Pain Rated 4-6 Ondansetron HCl 4 mg 06/23/23 12:28 06/24/23 04:11 Ondansetron Inj 4 Mg/2 Ml Vial IV PUSH 4 mg Q6H PRN Administration Nausea Oxycodone/Acetaminophen 1 tablet 06/23/23 12:28 06/24/23 12:35 Oxycodone/Acetaminophen (*Crx) 5-325 Mg Tablet PO 1 tablet Q4H PRN Administration Pain Rated 7-10 Labs 06/24/23 04:06
--- NOTE | 2023-06-25 09:52 | PC.NURSE ---
On 06/25/23, the student, Joann Schmidt, provided care and completed [facility] documentation on this patient. I have reviewed the student's documentation and agree with the findings.
--- NOTE | 2023-06-25 11:08 | PC.NURSE ---
Discharge instruction given and discussed, demonstrated and pt returned demonstration on catheter care including cleaning and emptying catheter. Date, time and location of cystogram given on 07/04 at [facility], pt to be here at 1pm and test is actually at 1:30pm, pt verbalized understanding.
== END 2023-06-25 11:20 | disposition home or self-care (01) | DRG 742 ==
LOC: ANHOB2 13:01
PROVIDERS: Urology; Admitting Provider Obstetrics & Gynecology Gynecology; PCP Family Medicine; Visit Provider Obstetrics & Gynecology Gynecology
PROC: 0UT94ZZ Resection of Uterus, Percutaneous Endoscopic Approach (ICD-10-PCS; principal; 2023-06-23 08:15)
PROC: 3E1K78Z Irrigation of Genitourinary Tract using Irrigating Substance, Via Natural or Artificial Opening (ICD-10-PCS; CPT 51700; 2023-06-23 08:15)
DX: N92.0 Excessive and frequent menstruation with regular cycle (principal); N99.71 Accidental puncture and laceration of a genitourinary system organ or structure during a genitourinary system procedure; E66.9 Obesity, unspecified; Z68.31 Body mass index [BMI] 31.0-31.9, adult; F41.8 Other specified anxiety disorders; G47.30 Sleep apnea, unspecified; N73.6 Female pelvic peritoneal adhesions (postinfective)
CPT/HCPCS: 36415; 85025; 88307; A9270; J0330; J0690; J1100; J1170; J1200; J1885; J2250; J2405; J2704; J3010; J7120; J7121; Q9968

== ENCOUNTER 2023-07-04 13:46 | Outpatient (CLI) | payer BC, SELFPAY ==
--- NOTE | ~2023-07-04 | XR_ITS ---
EXAMINATION: CYSTOGRAM DATE: 07/04/2023 14:20 INDICATION: Accidental bladder puncture/laceration with subsequent repair. TECHNIQUE: Initial set staff fitter radiograph of the pelvis was performed. There was retrograde administration of Omnipaque 350 mixed with saline contrast into patient's existing White catheter. Fluoroscopic jose f ges of the pelvis were obtained. A post-void image was also performed. Fluoroscopy exposure time was 0.4 minutes. A total of 17 fluoroscopic images were recorded. FINDINGS: Law Examiner image demonstrates compressible as in the bladder and a moderate lumbar levorotoscoliosis. Subs equent images demonstrate gradual distention of the bladder. There is mild abnormality to the contour of the left side of the bladder wall but with smooth mucosal surface likely representing the site of the bladder laceration and repair. No evident extraluminal contrast extravasation to suggest bladder leak. No vesicoureteral reflux. IMPRESSION: 1. No bladder leak. Reviewed, dictated and finalized at location A. IMPRESSION: 1. No bladder leak.
== END 2023-07-04 13:47 | disposition home or self-care (01) ==
PROVIDERS: PCP Family Medicine; Visit Provider Obstetrics & Gynecology Gynecology
DX: N99.72 Accidental puncture and laceration of a genitourinary system organ or structure during other procedure (principal)
CPT/HCPCS: 51600; 74430; Q9967